=== PATIENT | female | born 1950 | race Caucasian/White ===

== ENCOUNTER 2019-02-22 07:30 | Inpatient (IN) ==
[2019-02-20 16:27] LABS: Appearance,Urine CLEAR; Bacteria,Urine 0 /hpf (0); Bilirubin,Urine NEG (NEG); Color,Urine STRAW; Culture Indicated,Urine NO; Glucose,Urine (UA) NEGATIVE (NEG); Ketones,Urine NEG (NEG); Leukocyte Esterase,Urine 25 /uL (NEG); Nitrate,Urine NEG (NEG); Protein,Urine NEG (NEG); Specific Gravity,Urine 1.005 (1.000-1.035); Urine Blood NEG mg/dL (<0.03); Urine RBC 1 /hpf (0-1); Urine Squamous Epithelial Cell < 1 /hpf (0-4); Urine WBC 3 /hpf (0-4); Urobilinogen,Urine NEG (NEG)
[2019-02-20 16:52] LABS: Basophils # (Auto) 0 K/mcL (0.0-0.3); Basophils % (Auto) 0.7 % (0.0-2.0); Eosinophils # (Auto) 0.1 K/mcL (0.0-0.7); Granulocytes % (Auto) 67.5 % (38.0-78.0); Hematocrit 38.7 % (36.0-48.0); Hemoglobin 12.9 g/dL (12.0-15.0); Lymphocytes # (Auto) 1.8 K/mcL (1.5-4.8); Lymphocytes % (Auto) 23.6 % (15.5-49.0); Mean Corpuscular HGB Conc 33.2 g/dL (31.0-36.0); Mean Platelet Volume 8.1 fL (7.4-10.4); Monocytes # (Auto) 0.5 K/mcL (0.1-0.9); Monocytes % (Auto) 6.2 % (1.0-12.0); Platelet Count 277 K/mcL (140-440); RBC 4.21 M/mcL (4.00-5.20); Red Cell Distribution Width 14.4 % (11.5-14.5); WBC 7.5 K/mcL (4.5-11.0)
[2019-02-20 17:28] LABS: Blood Urea Nitrogen 6 mg/dl (8-23); Carbon Dioxide 26 mmol/L (22-30); Chloride 105 mmol/L (96-108); Glomerular Filtration Rate 94; Glucose 91 mg/dL (70-105)
[2019-02-20 18:05] LABS: Estimated Average Glucose(eAG) 128 mg/dL; Hemoglobin A1C 6.1 % HGB (4.0-6.0)
[~2019-02-22 07:30] MED LIST: 0.9 % SODIUM CHLORIDE 9 ML, KETOROLAC 30 MG, ROPIVACAINE HCL/PF 49.5 ML, EPINEPHrine 0.... IJ SCH; CELECOXIB 200 MG CAPSULE PO SCH; IPRATROPIUM/ALBUTEROL 3 ML AMPUL.NEB NEB PRN; PREGABALIN 75 MG CAPSULE PO SCH; SCOPOLAMINE 1 PATCH PATCH TOPICAL PRN; ceFAZolin 2 GM in DEXTROSE 5% IN WATER 50 ML IV SCH; oxyCODONE 10 MG TAB.ER.12H PO SCH
[2019-02-22] MEDS ORDERED: LIDOCAINE HCL/PF 100 MG/5 ML SYRINGE IV ONE (12:03)
[2019-02-22] MEDS ORDERED: METOPROLOL TARTRATE 5 MG/5 ML VIAL IV ONE (12:03)
[2019-02-22] MEDS ORDERED: PROPOFOL 200 MG/20 ML VIAL IV ONE (12:03)
[2019-02-22] MEDS ORDERED: ROPIVACAINE HCL/PF 20 ML VIAL IJ ONE (12:03)
[2019-02-22] MEDS ORDERED: KETAMINE 100 MG/ML ML IV ONE (12:03)
[2019-02-22] MEDS ORDERED: DEXAMETHASONE 10 MG/ML VIAL IV ONE (12:03)
[2019-02-22] MEDS ORDERED: ePHEDrine 50 MG/ML AMPUL IV ONE (12:03)
[2019-02-22] MEDS ORDERED: TRANEXAMIC ACID 1,000 MG/10 ML VIAL IV ONE ×2 (12:03→13:40)
[2019-02-22] MEDS ORDERED: methylPREDNISolone SOD SUCC 125 MG/2 ML VIAL IV ONE (12:03)
[2019-02-22] MEDS ORDERED: BENZOCAINE/MENTHOL 1 LOZENGE PO PRN ×2 (13:29→13:40)
[2019-02-22] MEDS ORDERED: IPRATROPIUM/ALBUTEROL 3 ML AMPUL.NEB NEB PRN (13:29)
[2019-02-22] MEDS ORDERED: PROMETHAZINE 25 MG/ML VIAL IV PRN (13:29)
[2019-02-22] MEDS ORDERED: NALOXONE HCL 0.4 MG/ML VIAL IV PRN (13:29)
[2019-02-22] MEDS ORDERED: ONDANSETRON 4 MG/2 ML VIAL IV PRN ×2 (13:29→13:40)
[2019-02-22] MEDS ORDERED: LACTATED RINGERS 250 ML IV PRN (13:29)
[2019-02-22] MEDS ORDERED: diphenhydrAMINE 50 MG/ML VIAL IV PRN (13:29)
[2019-02-22] MEDS ORDERED: ACETAMINOPHEN 1,000 MG/100 ML BOTTLE IV ONE (13:29)
[2019-02-22] MEDS ORDERED: fentaNYL 100 MCG/2 ML VIAL IV PRN (13:29)
[2019-02-22] MEDS ORDERED: LACTATED RINGERS 1,000 ML IV SCH (13:30)
[2019-02-22] MEDS ORDERED: BISACODYL 10 MG SUPP.RECT PR PRN (13:40)
[2019-02-22] MEDS ORDERED: HYDROmorphone 2 MG/ML VIAL IV PRN (13:40)
[2019-02-22] MEDS ORDERED: FLEETS ADULT ENEMA PR PRN (13:40)
[2019-02-22] MEDS ORDERED: MAGNESIUM HYDROXIDE 30 ML ORAL.SUSP PO PRN (13:40)
[2019-02-22] MEDS ORDERED: POLYETHYLENE GLYCOL 3350 17 GM PACKET PO PRN (13:40)
--- NOTE | 2019-02-22 13:40 | Brief Operative Note ---
Date of procedure: 02/22/19 Pre-op diagnosis: R knee DJD Post-op diagnosis: same Procedure: Right robotic assisted total knee arthroplasty Grafts/Implants: Yes ([place] Triathlon CR 2 femur, 2 tibia, 10 CR insert, 33 patella) Anesthesia: spinal, GLMA Findings: arthritis Complications: none Surgeon: Bran Ventura Hand Packager: Mathieu Mejia Estimated blood loss (cc): 30 Specimens Removed/Pathology: none sent Condition: stable Disposition: PACU
--- NOTE | 2019-02-22 14:08 | Operative Note ---
DATE OF OPERATION: 02/22/2019 PREOPERATIVE DIAGNOSIS: Right knee degenerative joint disease. POSTOPERATIVE DIAGNOSIS: Right knee degenerative joint disease. PROCEDURE PERFORMED: Right robotic-assisted total knee arthroplasty placing a [place] Triathlon size 2 cruciate retaining femoral component, size 2 tibial baseplate, 10 mm X3 tibial insert and a 33 mm patellar button. SURGEON: Bran Ventura MD STREETCAR REPAIRER HELPER: Joseph Mejia PA-C. This provider's expertise and technical skill were required throughout the case. The PA assisted with preoperative coordination, intraoperative retraction, wound closure, dressing and splint application, as well as postoperative documentation and care coordination. ANESTHESIA: Spinal plus general. DRAINS: None. SPECIMENS: Bone cuts, which were discarded. BLOOD LOSS: 50 mL COMPLICATIONS: None. POSTOPERATIVE CONDITION: Stable. INDICATIONS FOR SURGERY: This is a 68-year-old female who has had severe right knee pain. She had had a knee arthroscopy done a number of months ago. She was noted to have arthritis at that time. Postoperatively, she did poorly and continued to complain of pain despite conservative treatment including injections. FINDINGS AT SURGERY: She did have significant arthritis of the medial compartment. Post implantation showed good overall limb alignment, patellar tracking, and joint stability. PROCEDURE IN DETAIL: The patient had been seen preoperatively. Informed consent had been obtained after discussion of risks and benefits of surgery. Risks including, but not limited to, bleeding, possibly requiring transfusion; infection, possibly requiring implant removal and prolonged IV antibiotics; injury to nerves, blood vessels, and other surrounding structures; anesthetic risks; incomplete or no resolution of symptoms; swelling; stiffness; pain; instability; DVT and pulmonary embolus risks; and the possibility of needing further revision joint surgery. Patient understood and wished to proceed. Correct operative site was marked in preoperative holding, and patient was taken to the operating room and general anesthesia was induced. The right lower extremity was then prepped and draped in normal sterile fashion, and a timeout was performed verifying patient name, operative site, and plan. Ioban was placed over all skin surfaces and an Esmarch was used to exsanguinate the extremity, and tourniquet was inflated to ____ mmHg. A midline incision was made with a scalpel through skin and subcutaneous tissue, then IrriSept was irrigated and a medial parapatellar arthrotomy was made, and then a subperiosteal exposure was done of the anterior medial tibia. Anterior horns of the menisci were removed, as well as retropatellar fat pad. ACL was transected. We then did a resection of the patella freehand, premeasuring thickness and then placing a cut protector after. We then placed our femoral and tibial checkpoints, and then a scalpel was used to make two stab incisions over the femur and two over the tibia and bicortical pins placed. The arrays were connected. The green probe was used to identify medial and lateral malleoli and double-checks were made with the green probe of the femoral and tibial check points. Blue probe was then used to do our mapping. A rongeur was used to remove osteophytes. We then used the spoons to check our flexion-extension gaps and made adjustments to get as close to 17 mm gaps on all four numbers as possible. Once this was completed, we then used the robotic arm to make our bone cuts. The tibia was prepared with the boss reamer and keel punch and externally rotated as bone coverage would allow. A keeled tibial trial was placed, and the femur was elevated. Curved osteotome and curet were used to remove posterior osteophytes. Femoral trial was then impacted and pinned into place. This was placed flush along the lateral cortex of the femur and then peg holes were drilled. A 9 insert trial was placed and then the knee was taken into extension. We then prepared the patella medializing maximally and sized this to a 10 mm patella. We then checked the patellar tracking and it was stable. We then removed trial implants. Definitive implants were opened while the joint was irrigated with IrriSept. After waiting a minute, we pulse lavaged with saline. Antibiotic cement was mixed and then the cancellous bone surfaces were dried with the CO2 gun. We then cemented the tibia, followed by the femur. Excess cement was removed, and the trial insert was placed, and the knee was taken into extension. The patella was then cemented. After excess cement was removed, we filled the joint with IrriSept. The tibial and femoral check points were removed. The extension was checked and then we removed our arrays and our pins. We injected pain cocktail in the pericapsular and subcutaneous tissues. Once cement had fully hardened, we flexed the knee up. We removed the insert trial, injected pain cocktail in the posteromedial capsule. We then opened a 33 mm CS insert, and this was carefully impacted and verified to be fully seated. The knee was then placed in extension and filled with IrriSept. After a minute it was copiously pulse lavaged with saline. We then flexed the knee to 45 degrees of flexion. A #2 FiberWire [id number] was used around the superior quadrant of the patella, #1 Vicryl [id number] around the inferior quadrant. Running #1 Vicryl was used for patellar tendon and quad tendon. Final IrriSept irrigation was done, after a minute final pulse lavage, and then 2-0 Monocryl was used for subcutaneous and mariaa for skin. Xeroform and sterile dressing were applied. Tourniquet was released. The patient was awakened, extubated, and transferred to recovery in stable condition. BJB:med Job ID: [id number] Doc ID: [id number] Brna Ventura MD
--- NOTE | 2019-02-22 14:24 | XRay Report ---
HISTORY: Postop right knee arthroplasty FINDINGS: There is a well positioned total knee prosthesis. No fracture is present. There are no abnormal soft tissue calcifications around the joint. IMPRESSION: Well-positioned right knee prosthesis Interpreted and Authenticated by: Perfecto Guardado 02/22/19
[2019-02-22] MEDS: MEPERIDINE 25 MG/ML SYRINGE IV PRN ×2 (14:26→14:31)
[2019-02-22] MEDS: 0.9 % SODIUM CHLORIDE 1,000 ML IV SCH (14:51)
[2019-02-22] MEDS: 0.9 % SODIUM CHLORIDE 10 ML SYRINGE IV SCH ×2 (15:13→22:12)
[2019-02-22] MEDS: KETOROLAC 30 MG/ML VIAL IV SCH ×2 (17:46→23:41)
[2019-02-22] MEDS: ceFAZolin 1 GM VIAL IV SCH (19:12)
[2019-02-22] MEDS: oxyCODONE/APAP 5/325MG TABLET PO PRN (19:45)
[2019-02-22] MEDS ORDERED: GABAPENTIN 400 MG CAPSULE PO SCH (21:00)
[2019-02-22] MEDS ORDERED: DOCUSATE SODIUM 500 MG PO SCH (21:00)
[2019-02-22] MEDS ORDERED: IMIPRAMINE 25 MG TABLET PO SCH (21:00)
[2019-02-22] MEDS ORDERED: VITAMIN D3 1,000 UNIT TABLET PO SCH (21:00)
[2019-02-22] MEDS ORDERED: ATORVASTATIN 40 MG TABLET PO SCH (21:00)
[2019-02-22] MEDS ORDERED: SENNOSIDES 1 TABLET PO SCH (21:00)
[2019-02-22] MEDS ORDERED: LEVOTHYROXINE 50 MCG TABLET PO SCH (21:00)
[2019-02-22] MEDS ORDERED: METOPROLOL SUCCINATE 25 MG TAB.XL.24H PO SCH (21:00)
[2019-02-22] MEDS ORDERED: SERTRALINE 50 MG TABLET PO SCH (21:00)
[2019-02-22] MEDS: DOCUSATE SODIUM 100 MG CAPSULE PO SCH (22:11)
[2019-02-22] MEDS: ASPIRIN 81 MG TAB.CHEW PO SCH (22:11)
[2019-02-23] MEDS: 0.9 % SODIUM CHLORIDE 1,000 ML IV SCH (03:28)
[2019-02-23] MEDS: ceFAZolin 1 GM VIAL IV SCH (03:28)
[2019-02-23] MEDS: 0.9 % SODIUM CHLORIDE 10 ML SYRINGE IV SCH (05:55)
[2019-02-23] MEDS: KETOROLAC 30 MG/ML VIAL IV SCH ×2 (05:55→12:05)
--- NOTE | 2019-02-23 07:31 | Discharge Summary ---
Providers - Providers Patient information: Note initiated : 02/23/19 at 7:29 am Service Date, if different from initiated Date: [] Patient: Estefani Mckenzie 68 y/o F admitted on 02/22/19 for Right Total Knee Arthroplasty [place]. Chief Complaint: [] Discharge date: 02/23/19 Hospitalization Hospital Course: Pt was admitted for a R TKA. Pt underwent the procedure on the day of admission. Pt spent 1 night on the floor for IV abx, IV pain meds and PT. Pt discharged on post-op day 1. Pt will f/u in 2 weeks. ASA for DVT prophylaxis. Out-pt PT ordered. Discharge diagnosis: R knee OA Exam - Exam Clean and dry: Yes Weight bearing status: as tolerated Ortho Discharge - TKA - Patient Instructions Diet: Regular Diet Activity: activity as tolerated Total Knee Protocol: For Total Knee: Start ROM LAURA with stationary bike or rocking chair. Work on gaining full extension of knee. Posterior dislocation precautions provided. Hip abductor strengthening and gait training instructions provided. Apply Cryocuff as instructed. Dressing Care: May shower in 2 days - Follow Up Plan Disposition: Home, Self-Care Prognosis: Good Rehab Potential: Good Overall status at discharge: patient is progressing back to baseline - Orders For Discharge Prescriptions: Aspirin 81 mg PO BID #30 tab.chew Transmission Status: Pending to [facility] oxyCODONE/APAP [Percocet 5-325 mg] 1 - 2 tab PO Q4HP PRN #80 tab PRN Reason: Pain Level 3-6 Prescription Printed Pending Studies Resuscitation Status Full Code Diet Consistent Carbohydrate Diet Start WedFeb 22 134 Aspirin (Aspirin) 81 mg PO BID REPLACED BY [facility] Last Admin: 02/22/19 22:11 Dose: 81 mg Documented by: RBLEW Atorvastatin Calcium (Lipitor) 80 mg PO [facility] Last Admin: 02/22/19 22:11 Dose: 80 mg Documented by: RBLEW Docusate Sodium (Colace) 100 mg PO BID REPLACED BY [facility] Last Admin: 02/22/19 22:11 Dose: 100 mg Documented by: RBLEW Gabapentin (Neurontin) 800 mg PO [facility] Last Admin: 02/22/19 22:12 Dose: 800 mg Documented by: RBLEW Imipramine HCl (Tofranil) 12.5 mg PO [facility] Last Admin: 02/22/19 22:12 Dose: 12.5 mg Documented by: DIEUDONNE Ketorolac Tromethamine (Toradol) 30 mg IV Q6 REPLACED BY [facility] Stop: 02/24/19 12:01 Last Admin: 02/23/19 05:55 Dose: 30 mg Documented by: Admin: 02/22/19 23:41 Dose: 30 mg Documented by: Admin: 02/22/19 17:46 Dose: 30 mg Documented by: [email or web address] Levothyroxine Sodium (Synthroid) 50 mcg PO [facility] Last Admin: 02/22/19 22:11 Dose: 50 mcg Documented by: DIEUDONNE Metoprolol Succinate (Toprol Xl) 25 mg PO [facility] Last Admin: 02/22/19 22:11 Dose: 25 mg Documented by: DIEUDONNE Oxycodone/Acetaminophen (Percocet 5-325 Mg) 0 tab PO Q4HP PRN PRN Reason: PAIN LEVEL 3-6 Last Admin: 02/22/19 19:45 Dose: 1 tab Documented by: DIEUDONNE Senna (Senokot) 2 tab PO [facility] Last Admin: 02/22/19 22:11 Dose: 2 tab Documented by: DIEUDONNE Sertraline HCl (Zoloft) 100 mg PO [facility] Last Admin: 02/22/19 22:11 Dose: 100 mg Documented by: DIEUDONNE Sodium Chloride (Saline Flush) 10 ml IV Q8 REPLACED BY [facility] Last Admin: 02/23/19 05:55 Dose: 10 ml Documented by: Admin: 02/22/19 22:12 Dose: Not Given Documented by: Admin: 02/22/19 15:13 Dose: Not Given Documented by: TAYLOR Vitamin D (Vitamin D3) 2,000 unit PO [facility] Last Admin: 02/22/19 22:12 Dose: 2,000 unit Documented by: DIEUDONNE Shift Summary 02/23/19 04:45 Shift Summary by Alysia Worthington on RA. BP soft this AM, asymptomatic. Received scheduled Toradol and one tablet 5-325 Percocet for pain in R knee. Surgical dressing is C/D/I. IV to L hand is SL. Up to the bathroom with FWW and SBA. Cryocuff on/off tonight. Initialized on 02/23/19 04:45 - END OF NOTE
[2019-02-23] MEDS: oxyCODONE/APAP 5/325MG TABLET PO PRN (09:10)
[2019-02-23] MEDS: ASPIRIN 81 MG TAB.CHEW PO SCH (09:10)
[2019-02-23] MEDS: DOCUSATE SODIUM 100 MG CAPSULE PO SCH (09:10)
[2019-03-01] MEDS ORDERED: ALENDRONATE SODIUM 70 MG TABLET PO SCH (07:00)
== END 2019-02-23 12:35 | disposition home or self-care (01) | DRG 470 ==
LOC: MEDSUR 08:28
PROVIDERS: ADMIT Orthopaedic Surgery; ATTEND Orthopaedic Surgery